=== PATIENT | female | born 1995 | race Caucasian/White ===

== ENCOUNTER → 2016-12-11 | Outpatient (CLI) | payer OTHER ==
[~2016-12-11] MED LIST: BIOT5TAB PO; BIRTH CONTROL PO; CETI-176 PO; CYCL10TA9; HYDR-2997 PO; HYDR-3729 PO
--- NOTE | 2016-12-11 19:17 | Diagnostic Imaging Report ---
INDICATION: patient, limited study requested to evaluate cervical length. EXAMINATION: Limited transvaginal views were performed. FINDINGS: Estimated cervical length is 5 cm. IMPRESSION: Limited study shows normal cervical length of 5 cm. Dictated by: Dictated on workstation # [id number]
== END ==
LOC: RAD 16:43
PROVIDERS: ATTEND Obstetrics & Gynecology
DX: Q51.810 Arcuate uterus (principal)
CPT/HCPCS: 76817

== ENCOUNTER → 2017-01-06 | Outpatient (CLI) | payer OTHER ==
--- NOTE | 2017-01-06 14:26 | Diagnostic Imaging Report ---
INDICATION: anatomical survey. COMPARISON: 12/11/2016. DISCUSSION: Transabdominal sonographic evaluation of the gravid uterus was performed. Single live intrauterine at 20 weeks 3 days by sonographic measurements. Appropriate interval growth. The cervix measures 3.7 cm. EDC by today's ultrasound is 05/23/2017. presentation is breech. Grade 1 placenta is located anteriorly with no placenta previa. heart rate measures 144 beats per minute. There is poor visualization of the spine, three-vessel cord and insertion due to positioning. There was good visualization of the kidneys, bladder, stomach, brain, and four-chamber heart along with the extremities. Recommend short-term sonographic followup. No abnormal adnexal mass or fluid. Biparietal diameter measures 4.6 cm. Head circumference measures 17.7 cm. Abdominal circumference measures 15.6 cm. Femur length measures 3.2 cm. IMPRESSION: 1. Single live intrauterine at 20 weeks 3 days by sonographic measurements. 2. Poor visualization of the spine, three-vessel cord and insertion due to positioning. Recommend short-term sonographic followup. The remainder of the anatomical survey appears within normal limits. Dictated by: Dictated on workstation # [id number]
== END ==
LOC: RAD 12:49
PROVIDERS: ATTEND Obstetrics & Gynecology
DX: Z36 Encounter for antenatal screening of mother (principal); Z3A.20 20 weeks gestation of pregnancy
CPT/HCPCS: 76805; 76817

== ENCOUNTER → 2017-01-27 | Outpatient (CLI) | payer OTHER ==
--- NOTE | 2017-01-27 17:43 | Diagnostic Imaging Report ---
INDICATION: Followup incomplete anatomical survey. TECHNIQUE: Multiple real-time grayscale images were obtained over the gravid uterus. COMPARISON: 01/06/2017. FINDINGS: Transabdominal sonographic evaluation of the gravid uterus was performed. Single live intrauterine is again demonstrated. heart rate measures 136 beats per minute. presentation is breech. Normal amniotic fluid index. Grade 2 placenta is located anteriorly with no placenta previa. Gestational age by the first ultrasound is 23 weeks 1 day. EDC is 05/25/2017. There is good visualization of the three-vessel cord and insertion. However, the entire spine was still not well visualized due to positioning. Recommend continued short-term sonographic followup. No acute abnormality identified otherwise. IMPRESSION: Good visualization of the three-vessel cord and insertion on today's exam. The spine is still not well viewed due to positioning. Recommend continued short-term sonographic followup. Dictated by: Dictated on workstation # [id number]
== END ==
LOC: RAD 16:45
PROVIDERS: ATTEND Obstetrics & Gynecology
DX: Z36 Encounter for antenatal screening of mother (principal); Z3A.23 23 weeks gestation of pregnancy
CPT/HCPCS: 76816

== ENCOUNTER 2017-01-31 13:04 | Outpatient (CLI) | payer OTHER ==
[~2017-01-31] VITALS: Ht 175.3 cm; Wt 71.2 kg
[2017-01-31] MEDS ORDERED: VITA1CAP PO (13:16)
[2017-01-31] MEDS ORDERED: LORA10TA7 PO (13:16)
[2017-01-31] MEDS ORDERED: PREN-142 PO (13:16)
[2017-01-31 13:25] LABS: BILIRUBIN,URINE NEGATIVE (NEGATIVE); KETONES,URINE NEGATIVE (NEGATIVE); LEUKOCYTE ESTERASE ,URINE NEGATIVE (NEGATIVE); NITRITE,URINE NEGATIVE (NEGATIVE); PH,URINE 7 (5-9); PROTEIN,URINE NEGATIVE (NEGATIVE); UROBILINOGEN,URINE NORMAL (NORMAL)
[2017-01-31 13:26] VITALS: BP 139/73
[2017-01-31 13:40] LABS: SQUAMOUS EPITHELIAL CELL,UR RARE /HPF
--- NOTE | 2017-02-03 14:46 | Physician Query-Final Dx ---
ARAM BARAHONA 02/03/17 1446: Clinic Account Progress/Dx Physician Query: Please give diagnosis Date of Service January 31, 2017 at 13:04 AFSHIN HORTON DO 02/04/17 1805: Clinic Account Progress/Dx DIAGNOSIS: Diagnosis round ligament pain, second trimester ARAM BARAHONA February 03, 2017 14:46 AFSHIN HORTON DO February 04, 2017 18:05
== END 2017-01-31 13:50 | disposition home or self-care (01) ==
LOC: WSo 13:04 → LDRP 13:04 → WSo 13:50
PROVIDERS: ATTEND Obstetrics & Gynecology
DX: O99.89 Other specified diseases and conditions complicating pregnancy, childbirth and the puerperium (principal); R10.2 Pelvic and perineal pain; Z3A.24 24 weeks gestation of pregnancy
CPT/HCPCS: 81000; 99212

== ENCOUNTER → 2017-03-03 | Outpatient (CLI) | payer OTHER ==
[~2017-03-03] MED LIST changes: +LORA10TA7 PO; +PREN-142 PO; +VITA1CAP PO
--- NOTE | 2017-03-03 17:08 | Diagnostic Imaging Report ---
INDICATION: Followup incomplete survey for spine evaluation not well seen on the previous exam. TECHNIQUE: Multiple real-time grayscale images were obtained over the gravid uterus. COMPARISON: 01/27/2017 FINDINGS: The heart rate is 152 beats per minutes. The fetus is in cephalic position. The placenta is anterior. No placenta previa. Amniotic fluid index is 11.3 cm. The spine is much better seen on the current exam with no definite abnormality. IMPRESSION: The spine is seen with no definite abnormality. Dictated by: Dictated on workstation # [id number]
== END ==
LOC: RAD 11:51
PROVIDERS: ATTEND Obstetrics & Gynecology
DX: Z36 Encounter for antenatal screening of mother (principal); Z3A.00 Weeks of gestation of pregnancy not specified
CPT/HCPCS: 76816

== ENCOUNTER → 2017-04-22 | Outpatient (CLI) | payer OTHER ==
[~2017-04-22] MED LIST changes: +ASPI-999 PO; +FERR-74 PO; +IBUP-1773 PO; +MAGN400T39 PO
--- NOTE | 2017-04-22 11:56 | Diagnostic Imaging Report ---
PROCEDURE: MR imaging of the brain without contrast. TECHNIQUE: Multiplanar, multisequence MR imaging of the brain was performed without contrast. INDICATION: Frequent headaches, blurred vision, left facial numbness, left arm numbness. There are no previous MRI brain examinations available for comparison. The CT head exam performed on 09/12/2011, failed to show any sign of an acute abnormality or of a mass lesion. The patient is with an EDC of May 25, 2017. There is no mass, shift of the midline, or hemorrhage to suggest an acute intracranial abnormality. There is no abnormal signal arising from the brain on the diffusion series to indicate an area of acute ischemia. Furthermore, the FLAIR series is unremarkable for any signal abnormality in the white matter that would suggest demyelinating disease. The ventricles are not abnormally dilated and similar in size to the previous CT head exam. The sella is not enlarged. The pituitary gland is somewhat prominent but within normal limits. The optic chiasm is undisturbed, and the orbits appear symmetrical. The sinuses are generally clear. The cranial nerve VII and VIII complexes are unremarkable. The cerebellar tonsils are normal in position. IMPRESSION: 1. There is no acute intracranial abnormality. 2. There is no sign of a mass lesion nor is there any evidence for demyelinating disease. Dictated by: Dictated on workstation # [id number]
== END ==
LOC: RAD 09:24
PROVIDERS: ATTEND Psychiatry & Neurology Neurology
DX: R51 Headache (principal)
CPT/HCPCS: 70551

== ENCOUNTER 2017-05-11 01:54 | Inpatient (IN) | payer OTHER ==
[2017-05-11] VITALS (69 sets, daily range): BP systolic 98–156; BP diastolic 50–90
[~2017-05-11] VITALS: Ht 175.3 cm; Wt 83.5 kg
[~2017-05-11 01:54] MED LIST changes: -ASPI-999 PO; -FERR-74 PO; -IBUP-1773 PO; -MAGN400T39 PO
[2017-05-11] MEDS ORDERED: D5 LR IV SOLUTION 1,000 ML IV ONE (02:17)
[2017-05-11] MEDS ORDERED: HYDROmorphone (DILAUDID) 2 MG/ML VIAL IVP PRN (02:30)
[2017-05-11] MEDS: D5 LR IV SOLUTION 1,000 ML IV SCH ×2 (02:45→10:46)
--- OUTSIDE RECORDS SUMMARY | 2017-05-11 02:53 | XMS REPORT | Clinical Summary ---
Author Author [facility] Organization [facility] Address Unknown Phone Unavailable Care Team Providers Care Ux Information Architect Name Role Phone PCP Unavailable Source Comments Some departments are not documenting in the electronic medical record. If you do not see the information that you expected, contact Release of Information in the Health Information Management department at [phone] for further assistance in locating additional records.[facility] Allergies No Known Allergies Current Medications Prescription Sig. Disp. Refills Start End Date Status Date VIT Take by mouth daily. Active CALC,IRON,FOLIC ( VITAMIN PO) magnesium oxide (MAG-OX) Take 400 mg by mouth Active 400 mg tablet twice daily. aspirin EC 81 mg tablet Take 81 mg by mouth Active daily. Take with food. loratadine (CLARITIN) 10 Take 10 mg by mouth every Active mg tablet morning. butalbital/acetaminophen/ Take 1 Tab by mouth every 03/18/20 Active caffeine(+) (FIORICET) 4 hours as needed. For 17 50/325/40 mg tablet headache Active Problems Problem Noted Date Migraine with aura and without status migrainosus, not intractable 2016 Encounters Date Type Specialty Care Team Description 04/09/2017 Office Visit Neurology Mary Kc DO Nonintractable headache, unspecified chronicity pattern, unspecified headache type;Migraine with aura and without status migrainosus, not intractable 04/06/2017 Telephone Neurology Mary Kc DO Pre-Visit Planning (Dr. Kc 04/09/17) from Last 3 Months Family History Medical History Relation Name Comments Cancer Father Thyroid Disease Father Hypertension Maternal Grandmother Relation Name Status Comments Father Maternal Grandmother Social History Tobacco Use Types Packs/Day Years Used Date Never Smoker Smokeless Tobacco: Never Used Alcohol Use Drinks/Week oz/Week Comments No Currently Estimated Date of Delivery Comments Yes Sex Assigned at Date Recorded Not on file Last Filed Vital Signs Vital Sign Reading Time Taken Blood Pressure 118/69 04/09/2017 11:04 AM CDT Pulse 70 04/09/2017 11:04 AM CDT Temperature - - Respiratory Rate - - Oxygen Saturation - - Inhaled Oxygen - - Concentration Weight 78.5 kg (173 lb) 04/09/2017 11:04 AM CDT Height 175.3 cm (5' 9") 04/09/2017 11:04 AM CDT Body Mass Index 25.55 04/09/2017 11:04 AM CDT Plan of Treatment Health Maintenance Due Date Last Done Comments PHYSICAL (COMPREHENSIVE) 2000 EXAM HPV VACCINES (#1) 2004 PERTUSSIS VACCINE 2004 TETANUS VACCINE 2010 CERVICAL CANCER SCREENING 2014 INFLUENZA VACCINE 05/08/2017 Results Not on filefrom Last 3 Months
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
--- OUTSIDE RECORDS SUMMARY | 2017-05-11 02:53 | XMS REPORT | Encounter Summary ---
Author Author [facility] Organization [facility] Address Unknown Phone Unavailable Care Team Providers Care Field Instructor Name Role Phone PCP Unavailable Reason for Visit * Reason Comments Pre-Visit Planning Dr. Kc 04/09/17 Encounter Details Date Type Department Care Team Description 04/06/2017 Telephone [facility] Mary Kc DO Pre-Visit Planning ( - Neurology [address] De 04/09/17) [address] [place] [address] [place] [address] Social History Tobacco Use Types Packs/Day Years Used Date Never Assessed Sex Assigned at Date Recorded Not on file as of this encounter Plan of Treatment Not on fileas of this encounter Visit Diagnoses Not on filein this encounter
[2017-05-11 03:03] LABS: BASOPHILS % (AUTO) 0 % (0-10); EOSINOPHILS # (AUTO) 0.2 10^3/uL (0.0-0.3); EOSINOPHILS % (AUTO) 1 % (0-10); LYMPHOCYTES # (AUTO) 3.2 X 10^3 (1.0-4.0); LYMPHOCYTES % (AUTO) 25 % (12-44); MEAN CORPUSCULAR HEMOGLOBIN 30 PG (25-34); MEAN CORPUSCULAR HGB CONC 32 G/DL (32-36); MEAN CORPUSCULAR VOLUME 92 FL (80-99); MEAN PLATELET VOLUME 10.9 FL (7.4-10.4); MONOCYTES # (AUTO) 1.4 X 10^3 (0.0-1.0); MONOCYTES % (AUTO) 11 % (0-12); NEUTROPHILS # (AUTO) 7.9 X 10^3 (1.8-7.8); NEUTROPHILS % (AUTO) 63 % (42-75); PLATELET COUNT 239 10^3/uL (130-400); RED CELL DISTRIBUTION WIDTH 13.9 % (10.0-14.5); WHITE BLOOD COUNT 12.6 10^3/uL (4.3-11.0)
[2017-05-11] MEDS: OXYTOCIN/NORMAL SALINE 500 ML IV SCH ×2 (04:37→12:55)
[2017-05-11] MEDS ORDERED: CATHETER FLUSH 10 ML SYR IV SCH ×2 (06:00→14:00)
[2017-05-11] MEDS ORDERED: ONDANSETRON 4 MG/2 ML (SDV) Z0FRAN ONE (06:15)
[2017-05-11] MEDS ORDERED: ONDANSETRON 4 MG/2 ML (SDV) Z0FRAN IVP PRN (06:30)
[2017-05-11] MEDS ORDERED: ASPI-999 PO (07:22)
[2017-05-11] MEDS ORDERED: MAGN400T39 PO (07:24)
[2017-05-11] MEDS ORDERED: SUFENTA 0.6MCG/ML BUPIVA 0.125 100 ML ONE (08:25)
[2017-05-11] MEDS ORDERED: BUPIVACAINE 0.25% 30 ML (SENSORCAINE) VIAL ONE (08:31)
[2017-05-11] MEDS ORDERED: fentaNYL INJECTION 100 MCG/2 ML AMP ONE (08:31)
[2017-05-11] MEDS ORDERED: LIDOCAINE PF 2% 5 ML (XYLOCAINE) VIAL ONE (08:31)
[2017-05-11] MEDS ORDERED: LACTATED RINGERS 1,000 ML IV SCH (09:06)
[2017-05-11] MEDS ORDERED: NALOXONE 0.4 MG/ML 1 ML (NARCAN) VIAL IV PRN (09:15)
[2017-05-11] MEDS ORDERED: ONDANSETRON 4 MG/2 ML (SDV) Z0FRAN IV PRN (09:15)
[2017-05-11] MEDS ORDERED: diphenhydrAMINE 50 MG/ML INJ (BENADRYL) IV PRN (09:15)
[2017-05-11] MEDS ORDERED: EPIDURAL (SUFENTA 0.6MCG/ML BUPIVA 0.125%) 100 ML BAG EPI PRN (09:15)
--- NOTE | 2017-05-11 09:32 | History & Physical-OB ---
OB - Chief Complaint & HPI Date/Time Date of Admission: Date of Admission: May 11, 2017 at 2:29 am Time Seen by Provider: 09:20 Chief Complaint/History OB-Reason for Admission/Chief: Rupture of Membranes Hx : 2 Hx Para: 0 Expected Date of Delivery: May 25, 2017 Gestational Age in Weeks: 38 Admission Nurse Assessment Rev: Yes History of Labs B pos Antibody neg RI RPR NR HBsAg NR HIV NR GC neg GBS neg Allergies and Home Medications Allergies Uncoded Allergies: NKDA (Allergy, Mild, 09/24/09) Home Medications Aspirin 81 Mg Tab.chew, 81 MG PO DAILY, (Reported) Loratadine 10 Mg Tablet, 10 MG PO DAILY, (Reported) Magnesium Oxide 400 Mg Tablet, 400 MG PO DAILY, (Reported) Vit No.124/Iron/FA 1 Each Tablet, 1 TAB PO DAILY, (Reported) OB - History Hx of Present Care: Yes Ultrasounds: Normal mid trimester US Obstetrical Complications: Other (Arcutate uterus, monitored and evaluated by MFM) Medical Complications: Other (Migraine headaches throughout the ) Delivery History Hx Blood Disorders: No Adverse Rxn to Tranfusion: No Patient Past Medical History Hx of dysmenorrhea Social History/Family History Recent Infectious Disease Expo: No Alcohol Use: Denies Use Recreational Drug Use: No Immunizations Hepatitis A: Yes Hepatitis B: Yes Date of Influenza Vaccine: Jul 22, 2014 OB - Admission Exam Physical Exam Date Seen by Provider: May 11, 2017 Time Seen by Provider: 09:20 Vitals: Vital Signs 05/11/17 05/11/17 07:15 07:30 Temp 97.1 Pulse 91 Resp 18 B/P (MAP) 156/87 Pulse Ox 98 O2 Delivery Room Air HEENT: NCAT Heart: Rhythm Normal Lungs: Clear Abdomen: Gravid Extremities: Normal Reflexes: Normal Cervical Dilatation: 1cm Effacement: 75% Station: -1 Membranes: Ruptured Amniotic Fluid: Clear Heart Rate: 130's Accelerations: Accelerations Present Decelerations: No Decelerations Short Term Variability: Present Clay Thrower Variability: Average (6-25) Contractions on Admission: >10 Minutes Apart Intensity: Mild Labs Laboratory Tests Test 05/11/17 02:45 Range/Units White Blood Count 12.6 H 4.3-11.0 10^3/uL Red Blood Count 3.90 L 4.35-5.85 10^6/uL Hemoglobin 11.6 11.5-16.0 G/DL Hematocrit 36 35-52 % Mean Corpuscular Volume 92 80-99 FL Mean Corpuscular Hemoglobin 30 25-34 PG Mean Corpuscular Hemoglobin Concent 32 32-36 G/DL Red Cell Distribution Width 13.9 10.0-14.5 % Platelet Count 239 130-400 10^3/uL Mean Platelet Volume 10.9 H 7.4-10.4 FL Neutrophils (%) (Auto) 63 42-75 % Lymphocytes (%) (Auto) 25 12-44 % Monocytes (%) (Auto) 11 0-12 % Eosinophils (%) (Auto) 1 0-10 % Basophils (%) (Auto) 0 0-10 % Neutrophils # (Auto) 7.9 H 1.8-7.8 X 10^3 Lymphocytes # (Auto) 3.2 1.0-4.0 X 10^3 Monocytes # (Auto) 1.4 H 0.0-1.0 X 10^3 Eosinophils # (Auto) 0.2 0.0-0.3 10^3/uL Basophils # (Auto) 0.0 0.0-0.1 10^3/uL OB - Assessment/Plan/Diagnosis Assessment Assessment: rupture of membranes Plan Other Plan Due to no contractions or discomfort pitocin was started to augment labor. Epidural received this AM at 0900, patient was comfortable upon my evaluation and had just been checked by RN /-1. Will continue to augment labor with pitocin. Discharge Diagnosis Diagnosis: 21 yo @ 38 weeks Rupture of membranes GBS neg TEDDY SANTOS DO May 11, 2017 9:32 am
[2017-05-11] MEDS ORDERED: LIDOCAINE/EPI 2% 1:200,00 (XYLOCAINE) 10 ML VIAL ONE (11:15)
[2017-05-11] MEDS ORDERED: LIDOCAINE/EPI 2% 1:200,00 (XYLOCAINE) 10 ML VIAL INJ ONE (12:00)
[2017-05-11] MEDS ORDERED: OXYTOCIN/NORMAL SALINE 500 ML IV SCH (13:09)
[2017-05-11] MEDS ORDERED: MEASLES,MUMPS,RUBELLA 1 EA INJ SQ ONE (13:15)
[2017-05-11] MEDS ORDERED: TETANUS,DIPTH,PERTUSS P/F (BOOSTRIX) 0.5 ML VIAL IM ONE (13:15)
--- NOTE | 2017-05-11 13:18 | OB Labor & Delivery Record ---
L&D History Date of Service Date of Service: May 11, 2017 History Expected Date of Delivery: May 25, 2017 Gestational Age in Weeks: 38 Hx : 2 Hx Para: 0 Complications Events: Routine care Operative Indications (Cesarea: N/A-Vaginal Delivery Other Complications Rupture of a structure on the anterior vaginal wall started bleeding significantly in the second stage of labor. L&D Stage1 Stage One Onset of Labor - Date: May 11, 2017 Monitors and Tracing Monitor Mode: External Heart Rate: 125 Station: -3 Short Term Variability: Present Presentation: Vertex Vital Signs VS - Last 72 Hours, by Label 05/11/17 05/11/17 05/11/17 05/11/17 03:00 04:45 05:00 05:15 Temp 99.2 Pulse 90 90 88 106 Resp 18 18 18 18 B/P (MAP) 139/87 139/84 135/86 139/87 O2 Delivery Room Air Room Air Room Air Room Air 05/11/17 05/11/17 05/11/17 05/11/17 05:30 05:45 06:00 06:15 Pulse 80 83 85 95 Resp 18 18 18 18 B/P (MAP) 132/85 140/86 131/87 134/81 O2 Delivery Room Air Room Air Room Air Room Air 05/11/17 05/11/17 05/11/17 05/11/17 06:30 06:45 07:00 07:15 Temp 98.2 97.1 Pulse 91 81 64 94 Resp 18 18 18 18 B/P (MAP) 133/82 121/60 134/85 133/83 Pulse Ox 98 O2 Delivery Room Air Room Air Room Air Room Air 05/11/17 05/11/17 05/11/17 05/11/17 07:30 07:45 08:00 08:15 Pulse 91 109 70 67 Resp 18 18 18 18 B/P (MAP) 156/87 152/90 140/87 141/86 Pulse Ox 98 O2 Delivery Room Air Room Air Room Air Room Air 05/11/17 05/11/17 05/11/17 05/11/17 08:30 08:45 08:57 09:01 Pulse 67 90 88 91 Resp 18 18 18 18 B/P (MAP) 141/86 154/87 145/86 125/69 Pulse Ox 99 100 O2 Delivery Room Air Room Air Room Air Room Air 05/11/17 05/11/17 05/11/17 05/11/17 09:03 09:06 09:09 09:12 Pulse 88 87 96 96 Resp 18 18 18 18 B/P (MAP) 119/62 114/60 115/61 114/59 Pulse Ox 100 98 98 98 O2 Delivery Room Air Room Air Room Air Room Air 05/11/17 05/11/17 09:15 09:18 Pulse 81 81 Resp 18 18 B/P (MAP) 105/54 110/54 Pulse Ox 99 99 O2 Delivery Room Air Room Air Rupture of Membranes Spontaneous Ruture of Membrane: Yes Amniotic Membrane Rupture Time: 0100 Amniotic Membrane Fluid Desc.: Clear Amniotic Fluid Membrane Tests: Nitrazine Positive Induction/Anesthesia Epidural Cath Placement - Time: 08 Progress/Notes Patient's labor was augmented with Pitocin she progressed and obtained an epidural when she became uncomfortable. She progressed to complete and +1 station at which point I arrived for delivery L&D Stage2 Stage Two Stage II Date: May 11, 2017 Monitors and Tracing Monitor Mode: External Heart Rate: 125 Monitor Accelerations: Uniform Short Term Variability: Present Presentation: Vertex Signs of Distress by FHT Signs of Distress Repetitive variable decelerations some of them down into the 70s to 80s were noted during the second stage of labor but only during pushing with rapid return to baseline of 130s without pushing Cord Descript/Complications Cord Vessel Description: 3 Vessels Delivery Type Infant Delivery Method: Spontaneous Vaginal Episiotomy/Perineal Laceration Laceraction(s)/Extensions: Yes Episiotomy Description: Right Mediolateral, Vaginal Extension/lac Degree (describe repair) The RML was cut due to significant bleeding and the anterior vaginal wall and an concern for the anterior fourchette and labia and periurethral lacerations. This did take some of the pressure off the anterior vaginal wall, however after delivery the RML was repaired in the normal fashion using 30 and 2-0 Vicryl suture. Several attempts with running locking suture was made to ligate bleeding of the anterior vaginal wall however this tissue was very friable and the suture just pulled through. I ended up placing a catheter due to its proximity to the urethra clear urine was noted. The vagina was then packed using Kerlix very shallow packing was used just to apply pressure to the anterior vaginal wall. Uterine and cervical bleeding was inspected and found to be minimal. At this point patient was on her second bag of 30 milliunits of IV Pitocin being run wide open Condition of Infant Delivery 1 minute Comment: 5 5 minute Comment: 8 Notes Live male infant weight pending Condition of Condition of : Living Exam: No Observed Abnormalities Resuscitation Resuscitation: N/A - Spontaneous Resp L&D Stage3 Stage Three Stage III Date: May 11, 2017 Pictocin Pitocin Administration mu/min: 10 Pitocin ml/hr: 10 Pitocin Administration Comment: 30 milliunits ran wide open at delivery of placenta Placenta Delivery Placenta Delivery: Spontaneous Delivery Summary Summary blood loss >1000ml: No Vaginal blood loss >500ml: No 450 Attending at delivery: Teddy Santos DO Condition of Delivery Examined: Cervix Examined, Uterus Explored Post Hemorrhage: No Condition of Mother stable Condition of Infant (s) stable TEDDY SANTOS DO May 11, 2017 13:18
[2017-05-11] MEDS: WITCH HAZEL(TUCKS) 40 EA JAR TOP PRN (14:44)
[2017-05-11] MEDS: DIBUCAINE (NUPERCAINAL) 1% OINT 30 GM TOP PRN (14:45)
[2017-05-11] MEDS: BENZOCAINE/MENTHOL (DERMOPLAST) 56 ML CAN TP PRN (14:45)
[2017-05-11] MEDS: HYDROcodone/APAP 5 MG/325 MG (LORTAB) TAB PO PRN ×2 (17:43→20:26)
[2017-05-11] MEDS: IBUPROFEN 600 MG (MOTRIN) TAB PO SCH ×2 (18:21→23:34)
[2017-05-11] MEDS: DOCUSATE SODIUM 100 MG (COLACE) CAP PO SCH (20:26)
[2017-05-12] MEDS: IBUPROFEN 600 MG (MOTRIN) TAB PO SCH ×3 (06:11→18:09)
[2017-05-12 06:12] VITALS: BP 112/69
[2017-05-12 06:40] LABS: BASOPHILS % (AUTO) 0 % (0-10); EOSINOPHILS # (AUTO) 0.1 10^3/uL (0.0-0.3); EOSINOPHILS % (AUTO) 0 % (0-10); LYMPHOCYTES # (AUTO) 2.3 X 10^3 (1.0-4.0); LYMPHOCYTES % (AUTO) 15 % (12-44); MEAN CORPUSCULAR HEMOGLOBIN 30 PG (25-34); MEAN CORPUSCULAR HGB CONC 32 G/DL (32-36); MEAN CORPUSCULAR VOLUME 93 FL (80-99); MEAN PLATELET VOLUME 10.7 FL (7.4-10.4); MONOCYTES # (AUTO) 1.3 X 10^3 (0.0-1.0); MONOCYTES % (AUTO) 9 % (0-12); NEUTROPHILS # (AUTO) 11.3 X 10^3 (1.8-7.8); NEUTROPHILS % (AUTO) 76 % (42-75); PLATELET COUNT 186 10^3/uL (130-400); RED BLOOD COUNT 2.84 10^6/uL (4.35-5.85); RED CELL DISTRIBUTION WIDTH 14.2 % (10.0-14.5)
--- NOTE | 2017-05-12 08:29 | Postpartum Progress Note ---
Note Note Day # 1 s/p . Subjective: Patient is without complaints. Ambulating in the room, voiding. Tolerating a regular diet without nausea or vomiting. Normal lochia. Pain is well controlled with oral pain medications. breast feeding. Had pp bleeding due to vaginal tearing. Had vaginal pack and bleeding has improved after removal of vaginal pack. Objective: Laboratory Tests Test 05/12/17 06:11 Range/Units White Blood Count 15.0 H 4.3-11.0 10^3/uL Red Blood Count 2.84 L 4.35-5.85 10^6/uL Hemoglobin 8.5 #L 11.5-16.0 G/DL Hematocrit 27 L 35-52 % Mean Corpuscular Volume 93 80-99 FL Mean Corpuscular Hemoglobin 30 25-34 PG Mean Corpuscular Hemoglobin Concent 32 32-36 G/DL Red Cell Distribution Width 14.2 10.0-14.5 % Platelet Count 186 130-400 10^3/uL Mean Platelet Volume 10.7 H 7.4-10.4 FL Neutrophils (%) (Auto) 76 H 42-75 % Lymphocytes (%) (Auto) 15 12-44 % Monocytes (%) (Auto) 9 0-12 % Eosinophils (%) (Auto) 0 0-10 % Basophils (%) (Auto) 0 0-10 % Neutrophils # (Auto) 11.3 H 1.8-7.8 X 10^3 Lymphocytes # (Auto) 2.3 1.0-4.0 X 10^3 Monocytes # (Auto) 1.3 H 0.0-1.0 X 10^3 Eosinophils # (Auto) 0.1 0.0-0.3 10^3/uL Basophils # (Auto) 0.0 0.0-0.1 10^3/uL Vital Sign - Last 12Hours 05/11/17 05/12/17 23:30 06:12 Temp 98.0 98.2 Pulse 85 77 Resp 18 18 B/P (MAP) 130/80 112/69 Pulse Ox 98 99 Physical Exam: General - Alert and oriented, no apparent distress Abdomen - Soft, appropriately tender to palpation, non-distended, fundus firm at umbilicus Extremities - no edema, negative Santosh's bilaterally Assessment: 1. post- day # 1, status post spontaneous vaginal delivery. Recovering well, hemodynamically stable 2. Post hemorrhage with Acute blood loss anemia, currently stable Plan: Routine care. Encourage breast feeding. Encourage ambulation. Ferrous sulfate supplementation. Plan for discharge later today or tomorrow. Vitals - Labs Vital Signs - I&O Vital Signs Date Time Temp Pulse Resp B/P (MAP) Pulse Ox O2 Delivery O2 Flow Rate FiO2 05/12/17 06:12 98.2 77 18 112/69 99 05/11/17 23:30 98.0 85 18 130/80 98 05/11/17 20:10 98.8 75 18 123/70 97 05/11/17 17:15 99.7 97 18 120/75 97 Room Air 05/11/17 15:25 98.8 106 18 128/59 Room Air 05/11/17 15:10 86 18 123/64 Room Air 05/11/17 14:50 95 18 129/62 Room Air 05/11/17 14:35 88 18 114/59 Room Air 05/11/17 14:20 100 18 110/64 Room Air 05/11/17 14:05 98.7 90 18 109/57 Room Air 05/11/17 13:45 93 18 127/60 Room Air 05/11/17 13:25 99.2 93 18 132/59 Room Air 05/11/17 13:08 98 18 102/54 Room Air 05/11/17 12:53 105 18 102/69 Room Air 05/11/17 12:48 101 18 100/69 Room Air 05/11/17 12:43 104 18 118/58 Room Air 05/11/17 12:38 115 18 106/53 Room Air 05/11/17 12:33 111 18 113/53 Room Air 05/11/17 12:27 112 18 111/53 Room Air 05/11/17 12:17 139 142/56 Room Air 05/11/17 12:15 139 18 132/60 Room Air 05/11/17 12:08 139 18 136/66 Room Air 05/11/17 12:00 127 18 123/60 Room Air 05/11/17 11:55 99.1 127 18 125/59 Room Air 05/11/17 11:45 123 20 134/70 Room Air 05/11/17 11:30 112 18 122/57 Room Air 05/11/17 11:25 103 18 120/60 Room Air 05/11/17 11:20 100 18 124/59 100 Room Air 05/11/17 11:10 116 18 113/63 100 Room Air 05/11/17 11:05 93 18 110/58 100 Room Air 05/11/17 11:00 92 18 109/60 100 Room Air 05/11/17 10:45 91 18 124/56 100 Room Air 05/11/17 10:30 90 18 99/57 100 Room Air 05/11/17 10:15 85 18 103/61 99 Room Air 05/11/17 10:00 98.8 78 18 105/56 98 Room Air 05/11/17 09:55 70 18 98/58 98 Room Air 05/11/17 09:49 73 18 107/50 99 Room Air 05/11/17 09:44 78 18 98/54 99 Room Air 05/11/17 09:39 83 18 102/57 100 Room Air 05/11/17 09:33 91 18 108/57 99 Room Air 05/11/17 09:30 85 18 106/55 99 Room Air 05/11/17 09:27 79 18 105/53 98 Room Air 05/11/17 09:24 85 18 109/59 98 Room Air 05/11/17 09:21 86 18 105/54 99 Room Air 05/11/17 09:18 81 18 110/54 99 Room Air 05/11/17 09:15 81 18 105/54 99 Room Air 05/11/17 09:12 96 18 114/59 98 Room Air 05/11/17 09:09 96 18 115/61 98 Room Air 05/11/17 09:06 87 18 114/60 98 Room Air 05/11/17 09:03 88 18 119/62 100 Room Air 05/11/17 09:01 91 18 125/69 100 Room Air 05/11/17 08:57 88 18 145/86 99 Room Air 05/11/17 08:45 90 18 154/87 Room Air 05/11/17 08:30 67 18 141/86 Room Air Labs Laboratory Tests 05/12/17 06:11: White Blood Count 15.0H, Red Blood Count 2.84L, Hemoglobin 8.5#L, Hematocrit 27L , Mean Corpuscular Volume 93, Mean Corpuscular Hemoglobin 30, Mean Corpuscular Hemoglobin Concent 32, Red Cell Distribution Width 14.2, Platelet Count 186, Mean Platelet Volume 10.7H, Neutrophils (%) (Auto) 76H, Lymphocytes (%) (Auto) 15, Monocytes (%) (Auto) 9, Eosinophils (%) (Auto) 0, Basophils (%) (Auto) 0, Neutrophils # (Auto) 11.3H, Lymphocytes # (Auto) 2.3, Monocytes # (Auto) 1.3H, Eosinophils # (Auto) 0.1, Basophils # (Auto) 0.0 AFSHIN HORTON DO May 12, 2017 08:29
[2017-05-12] MEDS: PRENATAL VITAMIN 1 EA TAB PO SCH (09:28)
[2017-05-12] MEDS: DOCUSATE SODIUM 100 MG (COLACE) CAP PO SCH ×2 (09:28→22:08)
[2017-05-12] MEDS: FERROUS SULF 325 MG (IRON) TAB PO SCH (09:28)
[2017-05-12 09:29] VITALS: BP 107/62
--- NOTE | 2017-05-12 14:08 | Anesthesia-Regional Post-Op ---
Regional Patient Condition Mental Status: Alert, Oriented x3 Circulation: Same as Pre-Op Headache: Absent Sensation: Full Recovery Motor Block: Absent Post Op Complications Complications None Follow Up Care/Instructions Patient Instructions None needed. Anesthesia/Patient Condition Patient is doing well, no complaints, stable vital signs, no apparent adverse anesthesia problems. No complications reported per nursing. KARYNA SERRA CRNA May 12, 2017 14:08
[2017-05-12 15:53] VITALS: BP 112/61
[2017-05-12 22:10] VITALS: BP 115/69
[2017-05-13] MEDS: IBUPROFEN 600 MG (MOTRIN) TAB PO SCH ×3 (00:32→11:41)
[2017-05-13 03:40] VITALS: BP 110/63
[2017-05-13 07:35] VITALS: BP 107/61
[2017-05-13] MEDS ORDERED: IBUP-1773 PO (09:17)
--- NOTE | 2017-05-13 09:19 | Discharge Inst-Women's Service ---
Discharge Inst-Women's Serv Depart Medication/Instructions New, Converted or Re-Newed RX: Call to Patients Pharmacy Instructions Motrin 600 mg po q 6 hrs prn, alternate with tylenol 1000 mg po q 6 hrs prn pain. Final Diagnosis labor Vaginal delivery arcuate uterus. antepartum iron def anemia acute blood loss anemia post bleeding Consults/Follow Up Additional Follow Up: Yes (6 weeks with Pravin) Activity Activity: Activity as Tolerated Driving Instructions: You May Drive NO SMOKING: NO SMOKING Nothing Inside Vagina: No Douching, No [place], No Tampons Diet Discharge Diet: No Restrictions Symptoms to Report to DrBriana: Swelling Increased, Bleeding Excessive, Fever Over 101 Degrees F, Vaginal Bleeding Increase, Cramps in Feet or Legs, Vaginal Discharge Foul For Any Problems or Questions: Contact Your Physician Skin/Wound Care Bathing Instructions: AFSHIN Salinas DO May 13, 2017 09:19
[2017-05-13] MEDS: PRENATAL VITAMIN 1 EA TAB PO SCH (09:20)
[2017-05-13] MEDS: FERROUS SULF 325 MG (IRON) TAB PO SCH (09:20)
--- NOTE | 2017-05-13 09:20 | Postpartum Progress Note ---
Note Note Day # 2 s/p PPH stable. Subjective: Patient is without complaints. Ambulating, voiding. Tolerating a regular diet without nausea or vomiting. Normal lochia. Pain is well controlled with oral pain medications. Physical Exam: General - Alert and oriented, no apparent distress Abdomen - Soft, appropriately tender to palpation, non-distended, fundus firm at umbilicus Extremities - no edema, negative Santosh's bilaterally Assessment: 1. post- day # 1, status post spontaneous vaginal delivery. Recovering well, hemodynamically stable 2. PPH stable Plan: Routine care. Encourage breast feeding. Encourage ambulation. Ferrous sulfate supplementation. Plan for discharge [facility] Vitals - Labs Vital Signs - I&O Vital Signs Date Time Temp Pulse Resp B/P (MAP) Pulse Ox O2 Delivery O2 Flow Rate FiO2 05/13/17 03:40 98.3 71 18 110/63 98 Room Air 05/12/17 22:10 98.2 80 18 115/69 98 Room Air 05/12/17 15:53 98.3 80 18 112/61 97 Room Air 05/12/17 09:29 97.9 77 18 107/62 98 Room Air AFSHIN HORTON DO May 13, 2017 09:20
[2017-05-13] MEDS: DOCUSATE SODIUM 100 MG (COLACE) CAP PO SCH (09:21)
[2017-05-13] MEDS ORDERED: FERR-74 PO (09:22)
[2017-05-13] MEDS: WITCH HAZEL(TUCKS) 40 EA JAR TOP PRN (09:26)
[2017-05-13] MEDS: DIBUCAINE (NUPERCAINAL) 1% OINT 30 GM TOP PRN (09:26)
[2017-05-13] MEDS: BENZOCAINE/MENTHOL (DERMOPLAST) 56 ML CAN TP PRN (09:26)
== END 2017-05-13 11:50 | disposition home or self-care (01) | DRG 774 ==
LOC: LDRP 01:54 → WSo 01:54 → LDRP 02:29 → WSo 02:29 → LDRP 15:45
PROVIDERS: ADMIT Obstetrics & Gynecology; ATTEND Obstetrics & Gynecology
PROC: 10E0XZZ Delivery of Products of Conception, External Approach (ICD-10-PCS; principal; 2017-05-11)
PROC: 0W8NXZZ Division of Female Perineum, External Approach (ICD-10-PCS; 2017-05-11)
PROC: 0HQ9XZZ Repair Perineum Skin, External Approach (ICD-10-PCS; 2017-05-11)
DX: O35.1XX0 Maternal care for (suspected) chromosomal abnormality in fetus, not applicable or unspecified (principal); Q51.810 Arcuate uterus; O67.9 Intrapartum hemorrhage, unspecified; O76 Abnormality in fetal heart rate and rhythm complicating labor and delivery; O70.0 First degree perineal laceration during delivery; O90.81 Anemia of the puerperium; D62 Acute posthemorrhagic anemia; Z37.0 Single live birth; Z3A.38 38 weeks gestation of pregnancy
CPT/HCPCS: 36415; 85025; 86850; 86900; 86901; 99212

== ENCOUNTER → 2019-09-30 | Outpatient (CLI) | payer OTHER ==
[~2019-09-30] MED LIST changes: +ASPI-999 PO; +FERR325T18 PO; +IBUP-1773 PO; +MAGN400T39 PO
--- NOTE | 2019-09-30 17:36 | Diagnostic Imaging Report ---
PROCEDURE: US Non-OB pelvis comp/trans. TECHNIQUE: Multiple realtime grayscale images were obtained of the pelvis in various projections endovaginally. Transabdominal imaging was also performed. INDICATION: Pelvic pain. FINDINGS: The uterus measures 6.5 x 2.5 x 3.8 cm. Endometrial stripe measures 4 mm. The endometrial cavity shows a mild arcuate appearance. There is no evidence of septation or bicornuate uterus. IMPRESSION: Normal-appearing uterus with very mild arcuate appearance noted of the uterine cavity. Dictated by: Dictated on workstation # [id number]
== END ==
LOC: RAD 15:01
PROVIDERS: ATTEND Obstetrics & Gynecology
DX: Q51.810 Arcuate uterus (principal)
CPT/HCPCS: 76830; 76856